=== PATIENT | female | born 1995 | race Hispanic/Latino ===

== ENCOUNTER 2024-07-13 10:36 | Emergency (ER) | payer OTHER ==
[2024-07-13] VITALS (15 sets, daily range): BP systolic 92–118; BP diastolic 57–77
[~2024-07-13] VITALS: Ht 160 cm; Wt 61.2 kg
[2024-07-13] MEDS ORDERED: KETOROLAC TROMETHAMINE 30 MG/ML SDV IV ONE (11:05)
[2024-07-13] MEDS ORDERED: METOCLOPRAMIDE HCL 10 MG/2 ML SDV IV ONE (11:05)
[2024-07-13] MEDS ORDERED: DiphenhydrAMINE HCL 50 MG/ML SDV IV ONE (11:05)
[2024-07-13] MEDS ORDERED: SODIUM CHLORIDE 0.9% 1,000 ML IV ONE (11:10)
[2024-07-13] MEDS ORDERED: MAGNESIUM SULFATE HEPTAHYDRATE 50 ML IV ONE (11:10)
[2024-07-13 11:33] LABS: BASO% 0.5 % (0-3); EOS% 0.8 % (0-8); HEMOGLOBIN 13.1 g/dl (12.0-16.0); IMMATURE GRANULOCYTES 0.2 % (0.0-5.0); LYMPH% 25.2 % (15-41); MEAN CORPUSCULAR HGB 31.6 pG CALC (26.0-32.0); MEAN CORPUSCULAR HGB CONC 33.6 g/dL CAL (32.0-36.0); MONO% 6.3 % (2-13); NEUT# 4.26 thou/uL (2.00-7.15); RED BLOOD COUNT 4.15 mill/uL (4.20-5.60); RED CELL DISTRI WIDTH 13.4 % (11.5-15.5)
[2024-07-13 11:44] LABS: HCG SERUM/URINE (NEG/POS) NEGATIVE (NEGATIVE)
[2024-07-13 11:49] LABS: ALBUMIN 4.3 g/dL (3.2-5.0); BILIRUBIN, TOTAL 0.4 mg/dL (0.02-1.3); CREATININE 0.8 mg/dL (0.5-1.0); TOTAL PROTEIN 7.2 g/dL (6.3-8.2)
[2024-07-13] MEDS ORDERED: DEXAMETHASONE SOD. PHOSPHATE 10 MG/ML VIAL IV ONE (13:30)
== END 2024-07-13 14:07 | disposition home or self-care (01) | DRG 887 ==
LOC: ED 10:36
PROVIDERS: Family Medicine
DX: F51.9 Sleep disorder not due to a substance or known physiological condition, unspecified (principal); Z20.822 Contact with and (suspected) exposure to COVID-19
CPT/HCPCS: J3475